=== PATIENT | male | born 1990 | race Caucasian/White ===

== ENCOUNTER 2016-04-16 00:40 | Emergency (ER) | payer OTHER ==
[~2016-04-16] VITALS: Ht 172.7 cm; Wt 104.3 kg
[~2016-04-16 00:40] MED LIST: MOBIC15 MG PO
--- NOTE | 2016-04-16 00:48 | ED PSYCHIATRIC COMPLAINT ---
History of Present Illness General Chief Complaint: Psychiatric Related Complaint Stated Complaint: ? SI ,? HEROIN Source: patient Exam Limitations: no limitations Vital Signs & Intake/Output Vital Signs & Intake/Output Vital Signs Date Time Temp Pulse Resp B/P Pulse O2 O2 Flow FiO2 Ox Delivery Rate 04/16 0724 97.5 65 16 117/68 96 Room Air 04/16 0520 97.4 69 20 123/57 95 Room Air 04/16 0046 98.4 80 18 118/76 99 Room Air Allergies Coded Allergies: NO KNOWN ALLERGIES (09/03/13) Reconcile Medications Meloxicam (Mobic) 15 MG TAB 1 TAB PO DAILY PRN PAIN Triage Nurses Notes Reviewed? yes Onset: Gradual Duration: hour(s): Timing: recent history Severity: moderate Associated Symptoms: anxiety, suicidal ideation HPI: 25-year-old gentleman with a history of heroin abuse and allegedly with HIV and hepatitis C, presents with suicidality. Per the medics, he was arrested this evening with heroin on his person. He made a suicidal statement to the police. They called 911 to have the medics transfer him to the emergency department. Upon arrival to the emergency department, the patient states, "I didn't want to stay in prison. I have an appointment for a detox program tomorrow morning. I have a $20,000 [place] which I could not make tonight. I am on probation." He is uncertain if he does have HIV and hepatitis C as he has not seen his primary care doctor in a long time. He denies fever chills weight loss nausea vomiting diarrhea. (KIARA EWING,LONI La) Past History Medical History Any Pertinent Medical History? see below for history Neurological: NONE EENT: NONE Cardiovascular: NONE Respiratory: NONE Gastrointestinal: NONE Hepatic: HEPATITIS C "FATTY LIVER" Renal: NONE Musculoskeletal: ARTHRITIS Psychiatric: OPIATE ABUSE CRACK/COCAINE ABUSE Endocrine: HYPOTHYROID Surgical History Surgical History: ankle surgery Psychosocial History What is your primary language Turkmen Family History Hx Contributory? No (KIARA EWING,LONI La) Review of Systems Review of Systems Constitutional: Reports: no symptoms. EENTM: Reports: no symptoms. Respiratory: Reports: no symptoms. Cardiovascular: Reports: no symptoms. GI: Reports: no symptoms. Genitourinary: Reports: no symptoms. Musculoskeletal: Reports: no symptoms. Skin: Reports: no symptoms. Neurological/Psychological: Reports: no symptoms. Hematologic/Endocrine: Reports: no symptoms. Immunologic/Allergic: Reports: no symptoms. All Other Systems: Reviewed and Negative (KIARA EWING,LONI La) Physical Exam Physical Exam General Appearance: well developed/nourished, mild distress Head: atraumatic Eyes: Bilateral: PERRL, EOMI. Ears, Nose, Throat: normal pharynx, normal ENT inspection, hearing grossly normal Neck: normal inspection, supple Respiratory: normal breath sounds Cardiovascular: regular rate/rhythm Gastrointestinal: soft, non-tender Extremities: normal range of motion Neurological/Psychiatric: no motor/sensory deficits, awake, agitated, oriented x 3 Appearance/Memory/Insight: disheveled Behavoir/Eye Contact/Speech: cooperative Thoughts/Hallucinations: normal thought pattern Skin: intact, normal color, warm/dry SAD PERSONS SAD PERSONS Response Value Male Sex? yes 1 Excessive Ethanol/Drug Use? yes 1 Single//? yes 1 Social Support? has no support 1 Total 4 SAD PERSONS Done? yes (KIARA EWING,LONI La) Progress Differential Diagnosis: OPIOID ABUSE VERSUS DEPRESSION VERSUS ACUTE GRIEF VERSUS OTHER Plan of Care: Orders Procedure Date/time Status Regular Diet 04/16 B Active EKG 04/16 457 Active Continuous Observation Monitor 04/16 48 Active ED CRISIS PSYCH CONSULT 04/16 48 Active URINE DRUG SCREEN FOR ER ONLY 04/16 47 Complete ETHANOL 04/16 47 Complete COMPREHENSIVE METABOLIC PANEL 04/16 47 Complete Laboratory Tests 04/16/16 0416: Urine Opiates Screen > 4000.00 H, Methadone Screen < 40, Barbiturate Screen 74, Ur Phencyclidine Scrn < 6.00, Amphetamines Screen 197, U Benzodiazepines Scrn < 85, Urine Cocaine Screen > 1000 H, Urine Cannabis Screen < 5.00 04/16/16 0158: Anion Gap 12, Estimated GFR > 60, BUN/Creatinine Ratio 13.8, Glucose 123 H, Calcium 9.5, Total Bilirubin 0.4, AST 18, ALT 27, Alkaline Phosphatase 68, Total Protein 7.6, Albumin 4.2, Globulin 3.4, Albumin/Globulin Ratio 1.2, Serum Alcohol < 10.0 04/16/16 0048: CBC w Diff Cancelled, WBC Cancelled, RBC Cancelled, Hgb Cancelled, Hct Cancelled , MCV Cancelled, MCH Cancelled, RDW Cancelled, Plt Count Cancelled, MPV Cancelled, PUBS MCHC Cancelled 7:28 am Patient signed out to me by Dr. Mc. Pending crisis evaluation. 10:43 am Patient cleared by crisis for discharge home. (ALEX ANGUIANO MD) Initial ED EKG: normal axis, normal intervals, normal p-waves, normal QRS complex, normal sinus rhythm Hand-Off Endorsed To: ALEX ANGUIANO MD Endorsed Time: 0700 Pending: consult (KIARA EWING,LONI La) Departure Departure Disposition: HOME OR SELF CARE Condition: Stable Clinical Impression Primary Impression: Acute adjustment disorder Secondary Impressions: Cocaine abuse, Opioid abuse Referrals: LEOBARDO EWING,JENNIFER Galo (PCP/Family) Departure Forms: Customer Survey General Discharge Information (KIARA EWING,LONI La) Departure Time of Disposition: 1043 Additional Instructions: FOLLOW UP WITH THE LIST OF OUTPATIENT DETOX FACILITIES GIVEN TO YOU. (ALEX ANGUIANO MD)
[2016-04-16 07:24] VITALS: BP 117/68
--- NOTE | 2016-04-16 10:43 | ED PSYCH CRISIS CONSULTATION ---
Crisis Consult Basic Assessment Date of Consult: 04/16/16 Responsible Person/Accompanied By: self Insurance Authorization: Insurance #1: Insurance name: RENALDO SHEPPARD Phone number: Policy number: [id number] Group number: Authorization number: ED Provider: Patient's ED Provider: LONI CRAIG MD Primary Care Physician: Patient's PCP: JENNIFER BOOTH MD PCP's Current Psychiatrist: n/a Chief Complaint: Psychiatric Related Complaint Patient's Quote: "I said I would hurt myself to get out of [facility]." Present Illness: The pt is a 25 yo single male brought in by ambulance on a PEER for SI. The pt reports he was stopped by the police yesterday due to not having a front license plate. The pt was arrested after the police searched his car and found 2 bundles of heroin. The pt reports he could not make his $1,000 long. The pt stated he heard the police officers talking about another prisoner being brought to the hospital due to SI. The pt reports he did not want to stay in the [facility] cell until court on Monday so he stated to the police I will kill myself. The PEER documents the pt stated to police he would hurt himself if placed in the cell. During this assessment the pt presents alert, oriented, cooperative and pleasant with goal directed speech. The pt denies SI and stated he had no intent to harm himself yesterday. The pt denies any history of suicide attempts. The pt denies HI, AH, VH and paranoia. The pt denies any problems with sleep and appetite. The pt denies any mood related issues. The pts toxicology screen is positive for opiates and cocaine. The pt lives with his parents who he reports are supportive. The pt stated he is injecting 10 bags of heroin daily and smoking $20 worth of crack daily. The pt reports he is using severance money he was paid after being laid off from a job. The pt stated he had planned on going to detox at [facility] at 8:00am today. Crisis spoke with the pt regarding currently available detox beds. The pt refused detox and requested discharge home. The pt reports he believes his next court date is in 2 weeks. The pt reports he was arrested for drug poesession approximately 5 months ago and after being in [facility] for approximately 8 weeks went to detox at [facility]. The pt denies any treatment since leaving detox at [facility]. The pt reports he has never been hospitalized. T/C to pts father Abhijeet ([phone]) left requesting a return call. Crisis spoke by phone with the pts mother Zoraida ([phone]), mother reports the pt has never tried to harm himself. Mother stated she believes the pt is at risk of accidental overdose but will not intentionally harm himself. Mother reports the pt was kicked out after 9 days of detox at [facility] 11/2015. Mother stated the pt has a history of refusing detox and twice signed himself out of [facility] . Mother stated the pt is on probation and may end up in [facility] due to his arrest yesterday. Mother stated she wants the pt returned to police custody. Discussed it appears the pt was released from police custody in the process of being brought to the ED. Pts presentation discussed with Dr. Harrison. Plan is for discharge with referral information to substance abuse treatment providers. Discussed with the pt and by phone with the pts mother the importance of having narcan readily available. Addressed Narcan can be obtained at most pharmacies along with instructions on administering Narcan. Mother stated she has Narcan already and knows how to administer it. Discussed with pt the risks of using fentanyl and heroin laced with fentanyl. Pt stated he is aware of the risks. Mother stated she may call the police to have the pt arrested if the pt brings heroin into their home. Patient's Address: [address] [place] [address] Other Phone Number: Who Do You Live With? Family Family/Informants Interviewed: pt's mother, see present illness. Allergies - Coded Allergies: NO KNOWN ALLERGIES (09/03/13) Current Medications - Scheduled PRN Medications Meloxicam (Mobic) 15 MG TAB 1 TAB PO DAILY PRN PAIN #20 TAB Prescribed by BRIT DUNN DO on 09/03/13 Laboratory Results: Laboratory Tests 04/16/16 0416: Urine Opiates Screen > 4000.00 H, Methadone Screen < 40, Barbiturate Screen 74, Ur Phencyclidine Scrn < 6.00, Amphetamines Screen 197, U Benzodiazepines Scrn < 85, Urine Cocaine Screen > 1000 H, Urine Cannabis Screen < 5.00 04/16/16 0158: Anion Gap 12, Estimated GFR > 60, BUN/Creatinine Ratio 13.8, Glucose 123 H, Calcium 9.5, Total Bilirubin 0.4, AST 18, ALT 27, Alkaline Phosphatase 68, Total Protein 7.6, Albumin 4.2, Globulin 3.4, Albumin/Globulin Ratio 1.2, Serum Alcohol < 10.0 04/16/16 0048: CBC w Diff Cancelled, WBC Cancelled, RBC Cancelled, Hgb Cancelled, Hct Cancelled , MCV Cancelled, MCH Cancelled, RDW Cancelled, Plt Count Cancelled, MPV Cancelled, PUBS MCHC Cancelled Past History Past Medical History Neurological: NONE EENT: NONE Cardiovascular: NONE Respiratory: NONE Gastrointestinal: NONE Hepatic: HEPATITIS C "FATTY LIVER" Renal: NONE Musculoskeletal: ARTHRITIS Psychiatric: OPIATE ABUSE CRACK/COCAINE ABUSE Endocrine: HYPOTHYROID Blood Disorders: HIV Past Surgical History Surgical History: ankle surgery Psychosocial History Strengths/Capabilities: able to articulate needs, supportive family, stable housing Physical Limitations (Interventions): n/a Psychiatric Treatment History Psych Treatment Psychiatric Treatment No Substance Use/Abuse History Drug Use/Abuse 1 Substances Used/Abused Yes Substance Used/Abused Heroin First Use age 15 Last Used 2 How much used/taken 10 bags How often daily For how long IV use for approximately 9 years Route of use inject Drug Use/Abuse 2 Substances Used/Abused Yes Substance Used/Abused Crack Cocaine First Use age 15 Last Used approximately 2 days ago How much used/taken $20 worth How often daily For how long on and off since age 15 Route of use inhale Substance Abuse Treatment Substance Abuse Treatment Past Substance Abuse TX Yes Inpatient Treatment Yes Outpatient Treatment Yes Location of Treatment [facility] Reason for Treatment Opiate Dependence Dates of Treatment long hx Response to Treatment poor Current Mental Status Mental Status Orientation: Person, Place, Situation Affect: WNL Speech: WNL Neuro-vegetative: WNL Appearance Appearance- Dress/Hygiene: appropriate Behaviors Thought Process: WNL Thought Content: WNL Memory: WNL Insight: Fair SI/HI Risk Assessment Past Suicidal Ideation/Attempts No Current Suicidal Ideation/Att No Past Homicidal Ideation/Att: No Current Homicidal Ideation/Attempts No Degree of Intent: None Danger To: n/a Risk Factors: access to lethal means, chronic/serious med cond., high anxiety/ distress, substance abuse, male, past detox Lethality Ratin (mild) PTSD Checklist PTSD Done? patient declined ED Management Sitter: Yes Restraints: No DSM5/PS Stressors/Medical Prob Diagnosis' (DSM 5, Stressors, Medical): F11.20 Opioid Use Disorder, Severe F14.20 Stimulant Use Disorder, Cocaine, Severe Current GAF: 45 Departure Disposition Psych Medical Clearance Date: 04/16/16 Medically Cleared at: 0800 Time Started: 0800 Time Ended: 0835 Psychiatrist Consulted: Dr. Harrison Date Disposition Established: 04/16/16 Time Disposition Established: 929 Plan for Disposition - Modality: Referral information provided for detox and Opiate dependence treatment. Facility: Patient to Arrange Rationale for Disposition: Pt is not in need of psychiatric hospitalization. Referrals LEOBARDO EWING,JENNIFER Galo (PCP/Family)
== END 2016-04-16 11:07 ==
LOC: ERH 00:40
DX: F43.20 Adjustment disorder, unspecified (principal); F14.10 Cocaine abuse, uncomplicated; F11.10 Opioid abuse, uncomplicated
CPT/HCPCS: 80307; 93005; 93010; G0463; G0480

== ENCOUNTER 2016-05-02 19:42 | Emergency (ER) | payer OTHER ==
--- NOTE | 2016-05-02 20:08 | ED PSYCHIATRIC COMPLAINT ---
History of Present Illness General Chief Complaint: Psychiatric Related Complaint Stated Complaint: +SI Source: patient, police Exam Limitations: no limitations Vital Signs & Intake/Output Vital Signs & Intake/Output Vital Signs Date Time Temp Pulse Resp B/P Pulse O2 O2 Flow FiO2 Ox Delivery Rate 05/03 0752 98.7 79 20 124/77 05/03 0633 98.7 79 20 124/77 98 Room Air 05/03 0203 16 05/02 2256 Room Air 05/02 2256 97.3 88 16 116/58 94 Room Air 05/02 2024 Room Air 05/02 2009 97.2 92 16 131/74 97 Room Air Allergies Coded Allergies: NO KNOWN ALLERGIES (09/03/13) Triage Note: PT BIBA FROM [facility] FOR +SI WITH PLAN TO HIT HEAD AGAINST WALL. PT REPORTS THE SI THOUGHTS STARTED TODAY WHEN HE WAS ARRESTED. PT DENIES HI. Triage Nurses Notes Reviewed? yes HPI: Patient presents for evaluation of suicidal ideation. The patient is currently in police custody and has a court appearance pending for tomorrow. Apparently he began making statements that he would hit his head against the wall. Patient states he has had prior suicide attempts in the past including throwing himself down the stairs and attempted overdoses. (KATIE EWING,BRIT Castillo) Past History Medical History Any Pertinent Medical History? see below for history Neurological: NONE EENT: NONE Cardiovascular: NONE Respiratory: NONE Gastrointestinal: NONE Hepatic: HEPATITIS C "FATTY LIVER" Renal: NONE Musculoskeletal: ARTHRITIS Psychiatric: OPIATE ABUSE CRACK/COCAINE ABUSE Endocrine: HYPOTHYROID Blood Disorders: HIV Surgical History Surgical History: ankle surgery Psychosocial History Who do you live with Family What is your primary language Lao Family History Hx Contributory? No (KATIE EWING,BRIT Castillo) Review of Systems Review of Systems Constitutional: Reports: no symptoms. EENTM: Reports: no symptoms. Respiratory: Reports: no symptoms. Cardiovascular: Reports: no symptoms. GI: Reports: no symptoms. Genitourinary: Reports: no symptoms. Musculoskeletal: Reports: no symptoms. Skin: Reports: no symptoms. Neurological/Psychological: Reports: see HPI. Hematologic/Endocrine: Reports: no symptoms. Immunologic/Allergic: Reports: no symptoms. All Other Systems: Reviewed and Negative (BRIT WILSON MD) Physical Exam Physical Exam General Appearance: see below Neurological/Psychiatric: see below Comments: General: Alert, calm, cooperative Head: Normocephalic, atraumatic Eyes: Normal inspection, no nystagmus, EOMI Ears: Normal inspection Nose: Normal inspection Throat: Moist mucosa Neck: Supple, no goiter Heart: Regular rate and rhythm, no murmurs rubs or gallops Lungs: Clear to auscultation bilaterally with good air entry Abdomen: Soft nontender nondistended, normal bowel sounds Chest: Nontender Extremities: Normal range of motion grossly,no tremors present, no cyanosis clubbing or edema of the upper extremities Neurologic: cranial nerves II through XII grossly intact, speech clear, gait normal Psychiatric: No apparent delusions or hallucinations, no pressured speech or thought blocking SAD PERSONS Done? DEFERRED TO CRISIS (KATIE EWING,BRIT Castillo) Progress Differential Diagnosis: depression, suicide ideation, bipolar disorder, poor impulse control Plan of Care: Orders Procedure Date/time Status Regular Diet 05/03 B Active URINE DRUG SCREEN FOR ER ONLY 05/03 0744 Active Continuous Observation Monitor 05/02 2112 Active ETHANOL 05/02 2006 Complete ED CRISIS PSYCH CONSULT 05/02 2006 Active Laboratory Tests 05/03/16 0745: Methadone Screen Pending, Barbiturate Screen Pending, Ur Phencyclidine Scrn Pending, Amphetamines Screen Pending, U Benzodiazepines Scrn Pending, Urine Cocaine Screen Pending, Urine Cannabis Screen Pending 05/02/16 2043: Serum Alcohol < 10.0 05/02/16 2007: Methadone Screen Cancelled, Barbiturate Screen Cancelled, Ur Phencyclidine Scrn Cancelled, Amphetamines Screen Cancelled, U Benzodiazepines Scrn Cancelled, Urine Cocaine Screen Cancelled, Urine Cannabis Screen Cancelled Comments: 05/02/2016 10:57:58 PM patient has been evaluated by crisis and will be reevaluated in the morning. 05/03/2016 7:12:45 AM patient signed out to Dr. Alejo. (KATIE EWING,BRIT Castillo) Comments: Cleared by psychiatry for discharge (VISHAL ALEJO MD) Departure Departure Condition: Stable Referrals: LEOBARDO EWING,JENNIFER Galo (PCP/Family) Departure Forms: Customer Survey General Discharge Information (BRIT WILSON MD) Departure Time of Disposition: 830 Disposition: HOME OR SELF CARE Clinical Impression Primary Impression: Depression with suicidal ideation Additional Instructions: Follow up with the recommendations of the slate worker (VISHAL ALEJO MD)
--- NOTE | 2016-05-02 21:46 | ED PSY CRISIS COLLATERAL NOTE ---
Collateral Note Collateral Note Family/Inform/Dennis Contacts: Phone contact with Abhijeet Joshi (father, ). Mr. Joshi said adamantly he will not put up bail for his son. He reports the pt is an addict, "he is addicted to heroin". Mr. Josih states he is not aware of a history of suicidal attempt in the past, however he feels the pt will make the statement of feeling suicidal as a matter of convienence. Mr. Joshi reports the pt has a mental health diagnoses, "he was diagnosed with ADD when he was younger" and he was also diagnosed with Depression and Bipolar Disorder. Mr. Joshi reports several times last year, and specifically in January 2016, 911 was called to the home to administer Narcan for the pt. Mr. Joshi does not believe that any of these overdoses were intentional or attempts to commit suicide. Mr. Joshi believes the pt "needs to go away for a long time". Mr. Joshi states the pt has court tomorrow 05/03/16, and he will not bail the pt out of long term. "The only help I can give him is to not help him"
--- NOTE | 2016-05-02 22:15 | ED PSYCH CRISIS CONSULTATION ---
See Addendum Crisis Consult Basic Assessment Date of Consult: 05/02/16 Responsible Person/Accompanied By: Self-In police custody Insurance Authorization: Insurance #1: Insurance name: RENALDO SHEPPARD Phone number: Policy number: [id number] Group number: Authorization number: ED Provider: Patient's ED Provider: BRIT WILSON MD Primary Care Physician: Patient's PCP: JENNIFER BOOTH MD PCP's Current Psychiatrist: Vicky Her MD Chief Complaint: Psychiatric Related Complaint Patient's Quote: "I will kill myself if I have to go to skilled nursing." Present Illness: The patient is a 25 year old single male brought to the ED in police custody with a complaint of suicidal ideation. The patient presented as alert, oriented, anxious, hopeless and fearful. The patient denies current SI, HI or psychosis. The patient denies HI and visual hallucinations. The patient reports experiencing auditory hallucinations of "hearing a pinging sound" off and on since he was a teenager. The patient reports decreased sleep (not sleeping for several days) and decreased appetite (not eating for two days). The patient states "I told the police I would hurt myself if I have to go to skilled nursing." The patient reports he was currently arrested for his second violation of probation for possession of heroin. The patient reports his main trigger is his fear over the high likelihood he will be incarcerated. The patient reports a history of prior suicide attempts. He reports he tried to hang himself when he was 13 years hold but the roof beam broke. His second attempt was by an intentional overdose two years ago when he was found unconscious by his mother. The patient reports a history of inpatient psychiatric treatment since he was 12 years old. The patient reports a history of polysubstance abuse since the age of 15 to self medicate. He reports he is currently using heroin, benzodiazepines and crack cocaine on a daily basis. He reports currently being prescribed and medically compliant with 20 mg of Paxil for depression. The patient reports having previously been incarcerated for 28 days in March of 2015 and knowing he would kill himself if he had to return to skilled nursing. This report prepared by JESSENIA [employer] Supervisor and signed off by Alba Mcintosh LCSW Patient's Address: [address] [place] [address] Other Phone Number: Who Do You Live With? Family Family/Informants Interviewed: Father-Abhijeet Joshi- Allergies - Coded Allergies: NO KNOWN ALLERGIES (09/03/13) Laboratory Results: Laboratory Tests 05/02/16 2043: Serum Alcohol < 10.0 Past History Past Medical History Neurological: NONE EENT: NONE Cardiovascular: NONE Respiratory: NONE Gastrointestinal: NONE Hepatic: HEPATITIS C "FATTY LIVER" Renal: NONE Musculoskeletal: ARTHRITIS Psychiatric: OPIATE ABUSE CRACK/COCAINE ABUSE Endocrine: HYPOTHYROID Blood Disorders: HIV Past Surgical History Surgical History: ankle surgery Psychosocial History Strengths/Capabilities: able to articulate needs, supportive family, stable housing Physical Limitations (Interventions): n/a Psychiatric Treatment History Psych Treatment Psychiatric Treatment Yes Inpatient Treatment Yes Outpatient Treatment Yes Location of Treatment [facility] (Age 12-16); [place] 28 days in 2015 Reason for Treatment Depression, bipolar and substance abuse Dates of Treatment [facility] (Age 12-16) & [place] 03/2015 Response to Treatment Patient has relapsed and is continuing to struggle with psychiatric issues. Diagnosis by History: Bipolar, Depression, Opioid Use Disorder, Stimulant Use Disorder & Sedative, Hypnotic or Anxiolytic Related Disorder Substance Use/Abuse History Drug Use/Abuse 1 Substances Used/Abused Yes Substance Used/Abused Benzodiazepines First Use 15 years old Last Used Yesterday How much used/taken 5 bags IV How often daily For how long Since age 15 Route of use IV Drug Use/Abuse 2 Substances Used/Abused Yes Substance Used/Abused Crack Cocaine First Use Age 15 Last Used Yesterday How much used/taken 1/2 gram How often daily For how long since age 15 Route of use Inhale Drug Use/Abuse 3 Substances Used/Abused Yes Substance Used/Abused Benzodiazepines First Use Age 15 Last Used Yesterday How much used/taken 6 mg Xanax How often daily For how long Since age 15 Route of use Oral Drug Use/Abuse 4 Substances Used/Abused Yes Substance Used/Abused Marijuana First Use Age 15 Last Used this week How much used/taken 1 joint How often occassionally For how long since age 15 Route of use Inhale Substance Abuse Treatment Substance Abuse Treatment Past Substance Abuse TX Yes Inpatient Treatment Yes Outpatient Treatment Yes Location of Treatment [facility] Reason for Treatment Opioid Use Disorder, Stimulant Use Disorder Dates of Treatment 03/2015 Response to Treatment Patient relapsed to daily use Comments: None Current Mental Status Mental Status Orientation: Person, Place, Situation Affect: Anxious, Hopeless Speech: WNL Neuro-vegetative: Appetite Decreased, Energy Decreased, Helpless, Loss of Interest, Sleep Disturbance Appearance Appearance- Dress/Hygiene: Patient was dressed in hospital scrubs and handcuffed. Patient had multiple tattoos, piercing on eyebrow and burgundy hair color. Behaviors Thought Process: WNL Thought Content: WNL Memory: WNL Insight: Fair SI/HI Risk Assessment Past Suicidal Ideation/Attempts Yes Current Suicidal Ideation/Att Yes Past Homicidal Ideation/Att: No Current Homicidal Ideation/Attempts No Degree of Intent: States Intent Danger To: Self Gravely Disabled: Lack of Insight, Poor Impulse Control, Poor Judgment Risk Factors: high anxiety/distress, history of suicide atmpts, SA/MH hospitalized, substance abuse, isolate/no social support, poor impulse control, male, limited support Lethality Ratin PTSD Checklist PTSD Done? patient declined ED Management Sitter: Yes Restraints: No DSM5/PS Stressors/Medical Prob Diagnosis' (DSM 5, Stressors, Medical): F32.9 Unspecified Depressive Disorder F11.20 Opioid Use Disorder, Severe F13.20 Sedative, Hypnotic or Anxiolytic Related Disoder, moderate F14.20 Stimulant Use Disorder, moderate Current GAF: 25 Comments: None Departure Disposition Psych Medical Clearance Date: 05/02/16 Medically Cleared at: 2006 Time Started: 2039 Time Ended: 2123 [facility] Disposition Established: 05/02/16 Time Disposition Established: 2123 Plan for Disposition - Modality: Hold over for reassesment in morning Rationale for Disposition: Patient presented to the ED brought in by police for threats to end his life. Concusltation with Dr. Her. Patient held over for re-evaluation in the morning. Referrals LEOBARDO EWING,JENNIFER Galo (PCP/Family)
[2016-05-03 08:56] VITALS: BP 109/55
== END 2016-05-03 08:58 ==
LOC: ERH 19:42
DX: F32.9 Major depressive disorder, single episode, unspecified (principal); R45.851 Suicidal ideations; F14.10 Cocaine abuse, uncomplicated; B20 Human immunodeficiency virus [HIV] disease
CPT/HCPCS: 80307; G0463; G0480; J3101

== ENCOUNTER 2016-05-18 17:08 | Emergency (ER) | payer OTHER ==
--- NOTE | 2016-05-18 17:19 | ED PSYCHIATRIC COMPLAINT ---
History of Present Illness General Chief Complaint: Psychiatric Related Complaint Stated Complaint: +SI, IN CUSTODY Source: patient Exam Limitations: no limitations Vital Signs & Intake/Output Vital Signs & Intake/Output Vital Signs Date Time Temp Pulse Resp B/P Pulse O2 O2 Flow FiO2 Ox Delivery Rate 05/19 0608 97.6 90 20 170/82 99 Room Air 05/19 0406 Room Air 05/19 0404 96.9 88 18 122/75 98 Room Air 05/19 0157 97.2 72 18 126/78 99 Room Air 05/18 2310 96.5 84 17 113/60 98 Room Air 05/18 2118 98.5 92 18 120/85 97 Room Air 05/18 1711 98.0 80 16 146/80 98 Room Air Room Air ED Intake and Output 05/19 0000 05/18 1200 Intake Total 0 Output Total Balance 0 Intake, Oral 0 Allergies Coded Allergies: NO KNOWN ALLERGIES (05/18/16) Reconcile Medications Buprenorphine HCl/Naloxone HCl (Suboxone 8 MG-2 MG Sl Film) 8 MG-2 MG FILM 1 STR SL DAILY ADDICTIVE BEHAVIOR (Reported) Triage Note: PT BIBA FROM PD LOCK UP FOR STATING "I WANT TO OFF MYSELF" PT STATES HE DOESN'T WANT TO GO BACK TO GROUP HOME. PT IS IN PD LOCKUP AND IS CURRENTLY SHACKLED WITH POLICE OFFICE AT BEDSIDE. PT STATES HE HAS NO PLANS BUT STATES WITH HIS HX OF HEP C AND HIV WHICH IS NOT BEING TREATED HE FEELS SUICIDAL. PT HAS NO PHYSICAL COMPLAINTS. SECURITY AT BEDSIDE. PT AWAITING FOR SCRUBS THAT WILL FIT HIM SO HE WILL REMAIN IN SHACKLES AND HIS CLOTHING UP HE IS ACCOMMADATED. Triage Nurses Notes Reviewed? yes Onset: Abrupt Duration: day(s): Timing: recent history HPI: 05/18/16 5:30 PM 25-year-old male presents to the emergency department in police custody for expressing suicidal ideation. The patient is apparently under arrest for failure to appear in court. He says that he got angry and upset when he was unable to reach his boyfriend by phone. He expressed some things that he says he really didn't mean. Now in the emergency department he denies suicidal ideation. The onset of the symptoms were abrupt, the duration was just today, the severity is significant as his symptoms required him to come to the emergency department in police custody. He says he has a past medical history of hepatitis C and HIV. He says he is not on any medications. He says he also has history of arthritis and anxiety. He denies any drug allergies. He does smoke. He does not drink. On physical exam he is awake alert oriented 3. He has a normal affect. He does have some mild swelling to the right ankle. He has an excellent right dorsalis pedis pulse. Normal color to the right foot. Crisis consultation has been requested and labs were ordered. (BRIT DUNN DO) Past History Travel History Traveled to [place] past 21 day No Medical History Any Pertinent Medical History? see below for history Neurological: NONE EENT: NONE Cardiovascular: NONE Respiratory: NONE Gastrointestinal: NONE Hepatic: HEPATITIS C "FATTY LIVER" Renal: NONE Musculoskeletal: ARTHRITIS Psychiatric: OPIATE ABUSE CRACK/COCAINE ABUSE Endocrine: HYPOTHYROID Blood Disorders: HIV Surgical History Surgical History: ankle surgery Psychosocial History Who do you live with Family What is your primary language Indonesian Tobacco Use: Current Daily Use Daily Tobacco Use Amount/Type: => 5 Cigarettes daily Family History Hx Contributory? No (BRIT DUNN DO) Review of Systems Review of Systems Constitutional: Denies: fever. EENTM: Denies: visual changes. Respiratory: Denies: short of breath. Cardiovascular: Denies: chest pain. GI: Reports: no symptoms. Genitourinary: Reports: no symptoms. Musculoskeletal: Reports: joint pain (right ankle). Skin: Reports: no symptoms. Neurological/Psychological: Reports: depressed. Hematologic/Endocrine: Reports: no symptoms. Immunologic/Allergic: Reports: no symptoms. (BRIT DUNN DO) Physical Exam Physical Exam General Appearance: alert, awake, anxious, mild distress Head: atraumatic, normal appearance, active bleeding Eyes: Bilateral: normal appearance, PERRL, EOMI. Ears, Nose, Throat: normal pharynx, normal ENT inspection Neck: normal inspection, supple, full range of motion Respiratory: normal breath sounds, chest non-tender, no respiratory distress Cardiovascular: regular rate/rhythm Gastrointestinal: non-tender Extremities: normal range of motion Neurological/Psychiatric: no motor/sensory deficits, awake, alert, anxious, depressed affect Appearance/Memory/Insight: disheveled Behavoir/Eye Contact/Speech: cooperative Thoughts/Hallucinations: no apparent hallucination Skin: intact, normal color, warm/dry SAD PERSONS SAD PERSONS Response Value Male Sex? yes 1 Depression/Hopelessness? yes 2 Single//? yes 1 Social Support? has no support 1 Total 5 SAD PERSONS Done? yes (BRIT DUNN DO) Progress Differential Diagnosis: drug intoxication, drug withdrawal, depression Plan of Care: Orders Procedure Date/time Status Regular Diet 05/19 B Active EKG 05/18 2202 Active Continuous Observation Monitor 05/18 1725 Active URINE DRUG SCREEN FOR ER ONLY 05/18 1725 Complete ETHANOL 05/18 1725 Complete COMPREHENSIVE METABOLIC PANEL 05/18 1725 Complete CBC WITHOUT DIFFERENTIAL 05/18 1725 Complete ED CRISIS PSYCH CONSULT 05/18 1725 Active Laboratory Tests 05/18/16 1935: Urine Opiates Screen > 4000.00 H, Methadone Screen < 40, Barbiturate Screen 63, Ur Phencyclidine Scrn < 6.00, Amphetamines Screen 274, U Benzodiazepines Scrn < 85, Urine Cocaine Screen > 1000 H, Urine Cannabis Screen 25.50 05/18/16 1905: Anion Gap 9, Estimated GFR > 60, BUN/Creatinine Ratio 15.7, Glucose 94, Calcium 9.4, Total Bilirubin 0.3, AST 15 L, ALT 28, Alkaline Phosphatase 72, Total Protein 6.8, Albumin 3.7, Globulin 3.1, Albumin/Globulin Ratio 1.2, CBC w Diff NO MAN DIFF REQ, RBC 4.46 L, MCV 82.6, MCH 27.6, RDW 14.0, MPV 6.9 L, Gran % 47.1, Lymphocytes % 39.6, Monocytes % 9.0, Eosinophils % 3.6, Basophils % 0.7, Absolute Granulocytes 4.0, Absolute Lymphocytes 3.3, Absolute Monocytes 0.8 H, Absolute Eosinophils 0.3, Absolute Basophils 0.1, PUBS MCHC 33.4, Serum Alcohol < 10.0 Initial ED EKG: NSIVCD Prior EKG: unchanged (BRIT DUNN DO) Hand-Off Endorsed To: DELL EWING,FREDI Mireles Endorsed Time: 0700 Pending: consult (KIARA EWING,LONI La) Departure Departure Condition: Stable Clinical Impression Primary Impression: Depression Referrals: LEOBARDO EWING,JENNIFER Galo (PCP/Family) Departure Forms: Customer Survey General Discharge Information Comments 05/18/16 10 PM The patient was evaluated by crisis. He is for reevaluation in the am. The patient will be signed out to Dr Mc at 1 am PATIENT SIGNED OUT TO DR MC (BRIT DUNN DO) Departure Disposition: HOME OR SELF CARE Additional Instructions: FOLLOW UP PER CRISIS MR. GROSS IS STABLE AT THIS TIME TO BE RELEASED INTO POLICE CUSTODY. (DELL EWING,FREDI Mireles) Critical Care Note Critical Care Note Critical Care Time: 30-74 min (BRIT DUNN DO)
[2016-05-18] MEDS ORDERED: SUBOXONE 8 MG-1 EACH SL (18:14)
[2016-05-18 19:17] LABS: ABSOLUTE BASOPHIL COUNT 0.1 /CUMM (0.0-0.2); ABSOLUTE EOSINOPHIL COUNT 0.3 /CUMM (0.0-0.7); ABSOLUTE LYMPH COUNT 3.3 /CUMM (1.2-3.4); ABSOLUTE MONOCYTE COUNT 0.8 /CUMM (0.10-0.60); BASOPHIL % 0.7 % (0.0-2.0); EOSINOPHIL % 3.6 % (0-5); GRANULOCYTE % 47.1 % (42.2-75.2); HEMATOCRIT 36.8 % (42-52); MEAN CORPUSCULAR HGB 27.6 PG (27.0-31.0); MEAN CORPUSCULAR HGB CONC 33.4 G/DL (33.0-37.0); MEAN CORPUSCULAR VOLUME 82.6 FL (80.0-94.0); MEAN PLATELET VOLUME 6.9 FL (7.4-10.4); PLATELET COUNT 326 /CUMM (130-400); RED BLOOD CELL CT 4.46 /CUMM (4.70-6.10); WHITE BLOOD CELL COUNT 8.4 /CUMM (4.8-10.8)
--- NOTE | 2016-05-18 20:22 | ED PSYCH CRISIS CONSULTATION ---
Crisis Consult Basic Assessment Date of Consult: 05/18/16 Responsible Person/Accompanied By: Patient BIB police custody Insurance Authorization: Insurance #1: Insurance name: RENALDO SHEPPARD Phone number: Policy number: [id number] Group number: Authorization number: ED Provider: Patient's ED Provider: BRIT DUNN DO Primary Care Physician: Patient's PCP: JENNIFER BOOTH MD PCP's Current Psychiatrist: None reported Chief Complaint: Psychiatric Related Complaint Patient's Quote: "I just don't want to go to assisted." Present Illness: The patient is a 25 year old single male brought to the ED in police custody with a complaint of suicidal ideation. Patient was recently seen on 05/03 at ED with same complaint and same situation. He was held over and d/c in the AM at that time. The patient presents today as alert, oriented, anxious, hopeless and fearful. The patient denies current SI, HI or psychosis. The patient denies HI and visual hallucinations. Patient reports that he was picked up on a warrant today at his house and brought to the local police department due to violation of probation. Patient then made comments about killing himself and was brought to ED. Patient is denying active thoughts of hurting himself and states that he does not want to go to assisted. He expects to go to court tomorrow AM. Patient reports actively using 1/2 bundle of heroin daily. He reports on and off use for about 10 years, having 3 years of sobriety at one point. Patient reports currently being in IOP treatment at [facility], court referred. Patient reports his last use was this AM. Patient reports a hx of psychiatric treatment and last inpatient hospitalization was age 12. Patient reports being prescribed 60mg of Paxil currently by his PCP. Patient's Address: [address] [place] [address] Other Phone Number: Who Do You Live With? Family Family/Informants Interviewed: Attempted to call father, patients next of kin, and unable to get through. Allergies - Coded Allergies: NO KNOWN ALLERGIES (05/18/16) Current Medications - Scheduled Medications Buprenorphine HCl/Naloxone HCl (Suboxone 8 MG-2 MG Sl Film) 8 MG-2 MG FILM 1 STR SL DAILY ADDICTIVE BEHAVIOR #40 (Reported) Entered as Reported by LOGAN ARMSTRONG on 05/18/161813 (FLORES VALLES,JOSIE) Past History Past Medical History Neurological: NONE EENT: NONE Cardiovascular: NONE Respiratory: NONE Gastrointestinal: NONE Hepatic: HEPATITIS C "FATTY LIVER" Renal: NONE Musculoskeletal: ARTHRITIS Psychiatric: OPIATE ABUSE CRACK/COCAINE ABUSE Endocrine: HYPOTHYROID Blood Disorders: HIV Past Surgical History Surgical History: ankle surgery Psychosocial History Strengths/Capabilities: able to articulate needs, supportive family, stable housing Physical Limitations (Interventions): n/a Psychiatric Treatment History Psych Treatment Psychiatric Treatment Yes Inpatient Treatment Yes Outpatient Treatment Yes Location of Treatment Inpatient age 12 at [facility] Reason for Treatment Depression, SI Dates of Treatment Age 12 Response to Treatment unknown Diagnosis by History: Bipolar, Depression, Opioid Use Disorder, Stimulant Use Disorder & Sedative, Hypnotic or Anxiolytic Related Disorder Substance Use/Abuse History Drug Use/Abuse 1 Substances Used/Abused Yes Substance Used/Abused Heroin First Use 10 years ago Last Used Today 8am How much used/taken 1/2 bundle How often daily For how long daily Route of use IV Drug Use/Abuse 2 Substances Used/Abused Yes Substance Used/Abused Cocaine First Use age 15 Last Used yesterday How much used/taken 1/2 gram How often daily For how long since age 15 Route of use inhale Drug Use/Abuse 3 Substances Used/Abused Yes Substance Used/Abused Benzodiazepines First Use Age 15 Last Used 1 week ago How much used/taken Unknown amount of Ativan How often Daily For how long unknown Route of use oral Substance Abuse Treatment Substance Abuse Treatment Past Substance Abuse TX Yes Inpatient Treatment Yes Outpatient Treatment Yes Location of Treatment Current IOP [facility], 1 year ago rehab at [facility] Reason for Treatment Polysubstance use Dates of Treatment current & 1 year ago Response to Treatment poor (FLORES VALLES,JOSIE) Current Mental Status Mental Status Orientation: Person, Place, Situation Affect: Anxious, Sad Speech: Normal Neuro-vegetative: Anhedonia, Energy Decreased, Helpless, Loss of Interest, Sleep Disturbance Appearance Appearance- Dress/Hygiene: In hospital issued scrubs, sitting upright in bed, good eye contact. Patient had multiple tattoos, piercing on eyebrow and burgundy hair color. Behaviors Thought Process: WNL Thought Content: WNL Memory: WNL Insight: Fair SI/HI Risk Assessment Past Suicidal Ideation/Attempts Yes Current Suicidal Ideation/Att No Past Homicidal Ideation/Att: No Current Homicidal Ideation/Attempts No Degree of Intent: Thoughts/No Intent Gravely Disabled: Poor Judgment Risk Factors: high anxiety/distress, SA/MH hospitalized, substance abuse, poor impulse control, male, limited support Lethality Ratin PTSD Checklist PTSD Done? patient declined ED Management Sitter: Yes Restraints: No (JOSIE TANNER LCSW) DSM5/PS Stressors/Medical Prob Diagnosis' (DSM 5, Stressors, Medical): F32.9 Unspecified Depressive Disorder F11.20 Opioid Use Disorder, Severe F13.20 Sedative, Hypnotic or Anxiolytic Related Disoder, moderate F14.20 Stimulant Use Disorder, moderate Current GAF: 25 (JOSIE TANNER LCSW) Departure Disposition Psych Medical Clearance Date: 05/18/16 Medically Cleared at: 193 Time Started: 1944 Time Ended: 2014 Psychiatrist Consulted: Vicky Her MD Date Disposition Established: 05/18/16 Time Disposition Established: 2009 Plan for Disposition - Modality: hold over re-eval in AM Facility: [facility] Rationale for Disposition: Patient made suicidal comment earlier in police department. Patient denies SI at present but to be held over night in ED and re-eval in AM. Referrals LEOBARDO EWING,JENNIFER Galo (PCP/Family) (JOSIE TANNER LCSW) Addendum Addendum Crisis re-evaluated pt this morning. Pt continues to deny active SI and states he is safe to go to court this morning. Pt does express that he feels sick from opiate withdrawl and asked to be medicated. Dr. Doherty aware and ordered meds. Of note pt was evaluated by Crisis on Apr 16 and May 02 2016 for the same presentation of stating SI in the context of trying to avoid going to assisted. Pt admits that he expresses suicidal ideation all 3 times times to avoid going to assisted. Pt currently denies SI, but states if he goes to assisted after court he will bang his head on the wall because he does not want to be there. Pt is cleared to be brought to court this morning in police custody as he denies active SI. If SI returns the police have been advised to have pt on suicide watch if detained. If he is released and there are safety concerns he may be brought back to the nearest ED Pts father Abhijeet Joshi and [employer] Therapist Yosi Starks ext [phone] were both made aware of the outcome of pts eval and that he will be discharged into police custody and brought to court. Case reviewed with Dr. Rivera of Psychiatry who approved dispo plan. (KUSUM VALLES,CHRISTO)
[2016-05-19 08:32] VITALS: BP 144/97
== END 2016-05-19 09:05 ==
LOC: ERH 17:08
PROVIDERS: Emergency Medicine
DX: F32.9 Major depressive disorder, single episode, unspecified (principal); B20 Human immunodeficiency virus [HIV] disease; F14.10 Cocaine abuse, uncomplicated; E03.9 Hypothyroidism, unspecified
CPT/HCPCS: 80307; 93005; 93010; G0463; G0480